=== PATIENT | female | born 1975 | race Caucasian/White ===

== ENCOUNTER 2019-05-02 10:07 | Emergency (ER) | payer MEDICAID ==
[~2019-05-02] VITALS: Ht 165.1 cm; Wt 99.8 kg
[2019-05-02 10:14] VITALS: BP 157/111
--- NOTE | 2019-05-02 10:14 | NUR ---
Taken to bed 11 via w/c
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
--- NOTE | 2019-05-02 10:35 | NUR ---
DR DRAKE EXAMINING PT.
--- NOTE | 2019-05-02 11:06 | NUR ---
PT. SLEEPING IN BED. NO FURTHER NEEDS AT THIS TIME. BED AT LOWEST AND LOCKED, RAILS UP X 2.
--- NOTE | 2019-05-02 11:17 | NUR ---
Patient discharged with VSS Written and verbal after care instructions given and explained. Patient verbalized understanding. Ambulatory with steady gait. All questions addressed prior to discharge. Advised to follow up with PMD.
[2019-05-02 11:18] VITALS: BP 132/84
== END 2019-05-02 11:17 | disposition home or self-care (01) ==
LOC: MED 10:07
DX: F15.10 Other stimulant abuse, uncomplicated (principal); I10 Essential (primary) hypertension; E11.9 Type 2 diabetes mellitus without complications
CPT/HCPCS: 99281

== ENCOUNTER 2019-05-02 17:26 | Emergency (ER) | payer MEDICAID ==
[~2019-05-02] VITALS: Ht 152.4 cm; Wt 99.8 kg
[2019-05-02 17:27] VITALS: BP 151/105
[2019-05-02] MEDS ORDERED: LORazepam 2 MG/ML VIAL IVP ONE (17:30)
[2019-05-02] MEDS ORDERED: NACL 0.9% 1,000 ML IV ONE ×2 (17:30→18:50)
[2019-05-02 19:25] VITALS: BP 127/85
== END 2019-05-02 19:25 | disposition home or self-care (01) ==
LOC: MED 17:26
DX: F15.10 Other stimulant abuse, uncomplicated (principal); F41.9 Anxiety disorder, unspecified; F12.10 Cannabis abuse, uncomplicated; E11.9 Type 2 diabetes mellitus without complications; I10 Essential (primary) hypertension
CPT/HCPCS: 93005; 96361; 96374; 99283; J2060; J7030

== ENCOUNTER 2020-08-07 19:11 | Emergency (ER) | payer MEDICAID, OTHER ==
[~2020-08-07] VITALS: Ht 152.4 cm; Wt 99.8 kg
[2020-08-07 19:23] VITALS: BP 163/109
--- NOTE | 2020-08-07 19:45 | NUR ---
45/F BIB self c/o abscess/cellulitis on left lower abdomen started 3 days ago, abdominal pain, nausea, and diarrhea. Pt states "my insides and the abscess hurt" and describes it as pressure/burning pain with a scale of 10/10. Pt denies any fever/vomiting, dysuria. Blood sugar 406 upon triage. PMH: HTN,DM NKDA
--- NOTE | 2020-08-07 20:08 | NUR ---
Dr. Sebastian at bedside examining patient
[2020-08-07] MEDS ORDERED: MORPHINE SULFATE 4 MG/ML SYR IVP ONE (20:20)
[2020-08-07] MEDS ORDERED: ONDANSETRON 4 MG/2 ML VIAL IVP ONE (20:20)
[2020-08-07] MEDS ORDERED: NACL 0.9% 1,000 ML IV ONE (20:20)
[2020-08-07] MEDS: LIDOCAINE/EPI 1% 1:100000 20 ML VIAL INJ ONE ×2 (20:20→20:42)
[2020-08-07] MEDS ORDERED: cefTRIAXone 1,000 MG VIAL ONE (20:38)
[2020-08-07 20:43] LABS: BASOPHILS # (AUTO) 0.1 K/uL (0.00-0.22); BASOPHILS % (AUTO) 1.3 % (0.0-2.0); EOSINOPHILS # (AUTO) 0.3 K/uL (0-0.4); EOSINOPHILS % (AUTO) 2.8 % (0.0-4.0); HEMATOCRIT 44.2 % (36-48); LYMPHOCYTES # (AUTO) 2.6 K/uL (2.5-16.5); LYMPHOCYTES % (AUTO) 25.6 % (20.5-51.1); MEAN CORPUSCULAR HEMOGLOBIN 29 pg (27-31); MEAN CORPUSCULAR HGB CONC 34 g/dL (33-37); MONOCYTES # (AUTO) 0.6 K/uL (0.8-1.0); MONOCYTES % (AUTO) 5.8 % (1.7-9.3); NEUTROPHILS # (AUTO) 6.6 K/uL (1.8-7.7); NEUTROPHILS % (AUTO) 64.5 % (42.2-75.2); PLATELET COUNT (AUTO) 358 K/uL (140-450); RED BLOOD CELL COUNT(AUTO) 5.26 MIL/uL (4.20-5.40); RED CELL DISTRIBUTION WIDTH 14.1 % (11.6-13.7); WHITE BLOOD COUNT (AUTO) 10.3 K/uL (4.8-10.8)
[2020-08-07 20:59] LABS: ALBUMIN 3.1 g/dL (3.4-5.0); ANION GAP 17.2 (8-16); CARBON DIOXIDE 25.1 mmol/L (21-32); CREATININE 0.9 mg/dL (0.6-1.3); POTASSIUM 4.3 mmol/L (3.5-5.1); TOTAL BILIRUBIN 0.5 mg/dL (0.0-1.0)
--- NOTE | 2020-08-07 21:00 | NUR ---
I&D set up ready at bedside.
[2020-08-07 21:20] LABS: APPEARANCE,URINE CLEAR (CLEAR); BILIRUBIN,URINE NEGATIVE (NEGATIVE); BLOOD, URINE NEGATIVE (NEGATIVE); COLOR,URINE YELLOW (YELLOW); LEUKOCYTE ESTERASE ,URINE NEGATIVE (NEGATIVE); NITRITE, URINE NEGATIVE (NEGATIVE); UGLUCOSE 3+ (NEGATIVE)
--- NOTE | 2020-08-07 21:20 | NUR ---
urine sample collected and sent to lab, received by
[2020-08-07] MEDS ORDERED: HYDROcodone/APAP 5/325 MG 1 TAB TAB PO ONE (22:00)
[2020-08-07] MEDS ORDERED: KETOROLAC 30 MG/ML VIAL IVP ONE (22:00)
--- NOTE | 2020-08-07 22:02 | NUR ---
patient refused I&D procedure. Addendum: 08/07/20 at 2228 by NAM pt also refused wound dressing as well. md aden
[2020-08-07] MEDS ORDERED: ONDA-24 SL (22:09)
[2020-08-07] MEDS ORDERED: SULF-59 PO (22:09)
[2020-08-07] MEDS ORDERED: CEPH-588 PO (22:09)
[2020-08-07] MEDS ORDERED: ACET-8386 PO (22:09)
[2020-08-07 22:25] VITALS: BP 141/98
--- NOTE | 2020-08-07 22:25 | NUR ---
Patient discharged with v/s stable. Written and verbal after care instructions given and explained. Patient alert, oriented and verbalized understanding of instructions. Ambulatory with steady gait. All questions addressed prior to discharge. IV access and ID band removed. Patient advised to follow up with PMD. Rx of Bactrim, Keflex, Zofran, [place] given. Patient educated on indication of medication including possible reaction and side effects. Opportunity to ask questions provided and answered.
== END 2020-08-07 22:25 | disposition home or self-care (01) ==
LOC: MED 19:11
DX: L02.211 Cutaneous abscess of abdominal wall (principal); E11.65 Type 2 diabetes mellitus with hyperglycemia; F17.210 Nicotine dependence, cigarettes, uncomplicated; I10 Essential (primary) hypertension
CPT/HCPCS: 36415; 80053; 81003; 81025; 82948; 83605; 85025; 87040; 87086; 96365; 96375; 99284; J0696; J1885; J2270; J2405; J7030; J2001

== ENCOUNTER 2020-08-12 04:08 | Emergency (ER) | payer OTHER ==
[~2020-08-12] VITALS: Ht 165.1 cm; Wt 99.8 kg
[~2020-08-12 04:08] MED LIST: ACET-8386 PO; CEPH-588 PO; ONDA-24 SL; SULF-59 PO
[2020-08-12 04:11] VITALS: BP 138/101
--- NOTE | 2020-08-12 04:16 | NUR ---
PT TAKEN TO BED 4
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
[2020-08-12] MEDS ORDERED: ONDANSETRON 4 MG ODT PO ONE (04:25)
[2020-08-12] MEDS ORDERED: KETOROLAC 60 MG/2 ML VIAL IM ONE (04:25)
--- NOTE | 2020-08-12 04:46 | NUR ---
Dr. De Jesus examining patient.
[2020-08-12] MEDS ORDERED: MORPHINE SULFATE 4 MG/ML SYR IM ONE (04:55)
--- NOTE | 2020-08-12 05:18 | NUR ---
Patient discharged with v/s stable. Written and verbal after care instructions given and explained. Patient verbalized understanding. Ambulatory with steady gait. ID band removed. All questions addressed prior to discharge. Advised to follow up with PMD.
== END 2020-08-12 05:18 | disposition home or self-care (01) ==
LOC: MED 04:08
DX: L02.416 Cutaneous abscess of left lower limb (principal); E11.9 Type 2 diabetes mellitus without complications; I10 Essential (primary) hypertension; F17.200 Nicotine dependence, unspecified, uncomplicated; Z79.899 Other long term (current) drug therapy; Z90.49 Acquired absence of other specified parts of digestive tract; Z98.890 Other specified postprocedural states
CPT/HCPCS: 96372; 99284; J1885; J2270; Q0162

== ENCOUNTER 2021-07-24 05:25 | Emergency (ER) | payer MEDICAID, OTHER ==
[~2021-07-24] VITALS: Ht 165.1 cm; Wt 84.8 kg
[~2021-07-24 05:25] MED LIST changes: +ONDA-188 SL; -ONDA-24 SL
[2021-07-24 05:27] VITALS: BP 154/108
--- NOTE | 2021-07-24 05:38 | NUR ---
CALL TO [facility]. THEY SAID FOR PT TO COME TO [facility] FOLLOWING DISCHARGE TO FILE REPORT
--- NOTE | 2021-07-24 06:15 | NUR ---
brought pt to bed 2
--- NOTE | 2021-07-24 06:25 | NUR ---
DR DOMINGO AT BEDSIDE ASSESSING PT
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
[2021-07-24] MEDS ORDERED: KETOROLAC 30 MG/ML VIAL IM ONE (06:50)
[2021-07-24] MEDS ORDERED: HYDROcodone/APAP 5/325 MG 1 TAB TAB PO ONE (06:50)
--- NOTE | 2021-07-24 07:18 | NUR ---
Pt report given to [facility] . Transfer of care at this time.
--- NOTE | 2021-07-24 07:20 | NUR ---
RECEIVED REPORT FROM FIORELLA WHEELER. PATIENT CALM AND RESTING. PAIN MED GIVEN BY FIORELLA WHEELER. AAOX3, AMBULATORY, VITALS STABLE
--- NOTE | 2021-07-24 07:35 | NUR ---
PT WENT FOR XR
--- NOTE | 2021-07-24 07:45 | NUR ---
PT BACK FROM XR
[2021-07-24] MEDS ORDERED: NAPR-54 PO (08:22)
[2021-07-24] MEDS ORDERED: MORPHINE SULFATE 4 MG/ML SYR IM ONE (08:30)
--- NOTE | 2021-07-24 08:43 | NUR ---
called rt for inspirometer
[2021-07-24 09:00] VITALS: BP 134/67
== END 2021-07-24 09:00 | disposition home or self-care (01) ==
LOC: MED 05:25
DX: S22.32XA Fracture of one rib, left side, initial encounter for closed fracture (principal); S05.12XA Contusion of eyeball and orbital tissues, left eye, initial encounter; S00.432A Contusion of left ear, initial encounter; E11.9 Type 2 diabetes mellitus without complications; I10 Essential (primary) hypertension; F17.210 Nicotine dependence, cigarettes, uncomplicated; Y08.89XA Assault by other specified means, initial encounter; Y93.89 Activity, other specified; Y92.89 Other specified places as the place of occurrence of the external cause; Y99.8 Other external cause status
CPT/HCPCS: 71101; 81002; 81025; 96372; 99284; J1885; J2270